=== PATIENT | female | born 1975 | race Caucasian/White ===

== ENCOUNTER 2016-09-04 13:32 | Inpatient (IN) | payer MEDICAID ==
[~2016-09-04] VITALS: Ht 160 cm; Wt 70.0 kg
[~2016-09-04 13:32] MED LIST: PRENAT PO
[2016-09-04 13:41] VITALS: Ht 160 cm; Wt 70.0 kg
[2016-09-04 13:42] VITALS: BP 124/77; PULSE 75; RESP 20
[2016-09-04] MEDS ORDERED: LACTATED RINGER'S 1,000 ML IV ONE (14:30)
--- NOTE | 2016-09-04 14:55 | RADRPT ---
PROCEDURE: OB ultrasound for biophysical profile CLINICAL INDICATION: Poor tone. Biophysical profile. . Low ANY level. TECHNIQUE: Multiple sonographic images of the pelvis were obtained. Transabdominal view of the gr avid uterus are available for review. The images were reviewed on a PACS workstation. COMPARISON: Previous OB ultrasound performed at an outside institution dated 09/02/2016 FINDINGS: breathing movement = 2/2 tone = 2/2 motion = 2/2 ANY = 2/2 ANY = 6.0 cm, previously 7.0 cm Single live intrauterine with cardiac activity. Cephalic presentation, anterior placenta. IMPRESSION: 1. Single viable intrauterine gestation. 2. Biophysical profile = 8/8. 3. ANY = 6.0 cm. RPTAT: HMJB .Phillip Allen MD, MD Date Time Electronically viewed and signed by .Phillip Allen MD, MD on 09/04/2016 14:55 .B/
[2016-09-04] MEDS ORDERED: CARBOPROST 250 MCG INJ IM PRN (16:00)
[2016-09-04] MEDS ORDERED: BUTORPHANOL 2 MG INJ IV PRN (16:00)
[2016-09-04] MEDS ORDERED: MISOPROSTOL 200 MCG TAB PR PRN (16:00)
[2016-09-04] MEDS ORDERED: AMPICILLIN 2 GM/NS (PMX) 100 ML IVPB ONE (16:00)
[2016-09-04] MEDS ORDERED: IBUPROFEN 600 MG TAB PO PRN (16:00)
[2016-09-04] MEDS ORDERED: METHYLERGONOVINE 0.2 MG INJ IM PRN (16:00)
[2016-09-04] MEDS ORDERED: OXYTOCIN 30 UNITS/LR 500 ML IV PRN (16:00)
[2016-09-04] MEDS ORDERED: OXYTOCIN 30 UNITS/LR 500 ML IV SCH (16:00)
[2016-09-04] MEDS ORDERED: LIDOCAINE 1% (MPF) 30 ML INJ INJ PRN (16:00)
[2016-09-04] MEDS ORDERED: LACTATED RINGER'S 1,000 ML IV PRN (16:00)
[2016-09-04 16:13] LABS: BASOPHILS % 0.5 % (0.0-2.0); EOSINOPHILS % 0.4 % (0.0-7.0); HEMATOCRIT 35.6 % (37.0-47.0); LYMPHOCYTES # 1.7 10^3/ul (0.8-2.9); LYMPHOCYTES % 17.7 % (15.0-51.0); MEAN CORPUSCULAR HEMOGLOBIN 31.4 pg (29.0-33.0); MEAN CORPUSCULAR HGB CONC 33.8 g/dl (32.0-37.0); MEAN CORPUSCULAR VOLUME 92.9 fl (82.0-101.0); MEAN PLATELET VOLUME 9.7 fl (7.4-10.4); MONOCYTE # 0.4 10^3/ul (0.3-0.9); NEUTROPHIL # 7.3 10^3/ul (1.6-7.5); NEUTROPHILS % 77.4 % (39.0-77.0); PLATELET COUNT 223 10^3/UL (140-440); RED BLOOD COUNT 3.83 10^6/ul (4.20-5.40); RED CELL DISTRIBUTION WIDTH 13.1 % (11.5-14.5); UNCORRECTED WBC 9.4 10^3/ul (4.8-10.8); WHITE BLOOD COUNT 9.4 10^3/ul (4.8-10.8)
[2016-09-04 16:22] LABS: INR 0.93; PROTIME 12.5 Sec (12.2-14.2)
[2016-09-04 16:23] LABS: CONDITION 1
[2016-09-04] MEDS: LACTATED RINGER'S 1,000 ML IV SCH (18:19)
[2016-09-04] MEDS: AMPICILLIN 1 GM/NS (PMX) 50 ML IVPB SCH ×2 (19:59→23:55)
[2016-09-05] MEDS: LACTATED RINGER'S 1,000 ML IV SCH ×3 (03:56→13:22)
[2016-09-05] MEDS: AMPICILLIN 1 GM/NS (PMX) 50 ML IVPB SCH ×5 (03:56→17:08)
--- NOTE | 2016-09-05 19:18 | RADRPT ---
PROCEDURE: OB ultrasound for biophysical profile CLINICAL INDICATION: Low ANY. Biophysical profile. . TECHNIQUE: Multiple sonographic images of the pelvis were obtained. Transabdominal view of the gr avid uterus are available for review. The images were reviewed on a PACS workstation. COMPARISON: None FINDINGS: breathing movement = 2/2 tone = 2/2 motion = 2/2 ANY = 2/2 ANY = 6.4 cm. Maximum vertical pocket of fluid measures 3.1 cm. Single intrauterine gestation is identified in cephalic position. Placenta is anterior without evide nce for abruption or previa. heart rate is 124 bpm. IMPRESSION: 1. Single live intrauterine gestation. 2. Biophysical profile = 8/8. 3. ANY = 6.4 cm, at the lower limit of normal. RPTAT: QQ .Talat San MD, Date Time Electronically viewed and signed by .Talat San MD, on 09/05/2016 13:45 .R/
[2016-09-06] MEDS: LACTATED RINGER'S 1,000 ML IV SCH ×4 (02:04→23:00)
--- NOTE | 2016-09-06 10:56 | RADRPT ---
PROCEDURE: US biophysical profile. CLINICAL INDICATION: Decreased motion. TECHNIQUE: Multiple sonographic images of the uterus were obtained. The images were revi ewed on a PACS workstation. COMPARISON: No prior studies are available for comparison. FINDINGS: There is a single live intrauterine gestation. The position is cephalic. The placenta is anterior grade II with no abruption or previa. The ANY is 7.1 cm. (Normal = 5-20 cm.) Breathing Movement: 2 Gross Body Movement: 2 Tone: 0 Qualitative Amniotic Fluid Volume: 2 TOTAL: 6 IMPRESSION: 1. The biophysical score is 6/8. RPTAT: QQ .Nabil Rivera MD, Date Time Electronically viewed and signed by .Nabil Rivera MD, on 09/06/2016 10:56 .R/
[2016-09-07] MEDS: LACTATED RINGER'S 1,000 ML IV SCH ×2 (07:19→16:51)
--- NOTE | 2016-09-07 08:50 | RADRPT ---
PROCEDURE: US OB biophysical profile. CLINICAL INDICATION: decreased movements, oligohydramnios TECHNIQUE: Multiple sonographic images of the pelvis were obtained. The images were reviewed on a PACS workstation. COMPARISON: Yesterday FINDINGS: There is a single viable intrauterine gestation. Cardiac activity is present with 121 beats per min [place]. There is a vertex presentation. The placenta is anterior. There is no evidence of placental abruption. There is a slightly decreased amount of amniotic fluid with an ANY = 7.5 cm. Biophysical profile: movement 2/2 tone 2/2. breathing 2/2 ANY 2/2 Total 04/12 RPTAT: AA . IMPRESSION: Normal biophysical profile. Borderline oligohydramnios. . .Antony Garvin MD, Date Time Electronically viewed and signed by .Antony Garvin MD, on 09/07/2016 08:49 .S/
[2016-09-07] MEDS ORDERED: SENNA/DOCUSATE NA (8.6MG/50MG) TAB PO ONE (17:30)
[2016-09-08] MEDS: LACTATED RINGER'S 1,000 ML IV SCH ×3 (01:56→16:28)
[2016-09-08 05:41] LABS: BARBITURATES NEGATIVE (NEGATIVE); BENZODIAZEPINES NEGATIVE (NEGATIVE); CANNABINOIDS NEGATIVE (NEGATIVE); COCAINE NEGATIVE (NEGATIVE); OPIATES NEGATIVE (NEGATIVE)
[2016-09-08] MEDS ORDERED: MISOPROSTOL 100 MCG TAB PO PRN (06:00)
[2016-09-08] MEDS ORDERED: AMPICILLIN 2 GM/NS (PMX) 100 ML IVPB ONE (06:00)
[2016-09-08] MEDS: MISOPROSTOL 25 MCG CAPSULE PO PRN ×3 (06:05→20:17)
[2016-09-08] MEDS: AMPICILLIN 1 GM/NS (PMX) 50 ML IVPB SCH ×4 (10:02→21:32)
[2016-09-09] MEDS: AMPICILLIN 1 GM/NS (PMX) 50 ML IVPB SCH ×4 (01:10→14:07)
[2016-09-09] MEDS: LACTATED RINGER'S 1,000 ML IV SCH ×4 (01:11→14:06)
[2016-09-09] MEDS ORDERED: DINOPROSTONE 10 MG VAG SUPP VAG ONE (06:30)
[2016-09-09] MEDS ORDERED: FENTAnyl 2MCG/ML-ROPIV 0.2% 100 ML ONE (12:15)
[2016-09-09] MEDS ORDERED: EPHEDrine SULFATE 50 MG/5 ML SYG IV PRN (12:30)
[2016-09-09] MEDS ORDERED: FENTAnyl 2MCG/ML-ROPIV 0.2% 100 ML BAG EPI SCH (12:30)
[2016-09-09] MEDS ORDERED: ONDANSETRON 4 MG INJ IV PRN (12:30)
[2016-09-09] MEDS ORDERED: NALOXONE (0.4 MG/ML) INJ IV PRN (12:30)
[2016-09-09] MEDS: OXYTOCIN 30 UNITS/LR 500 ML IV SCH ×2 (16:11→16:54)
[2016-09-09] MEDS: LACTATED RINGER'S 1,000 ML IV* SCH ×2 (17:27→18:56)
[2016-09-09] MEDS ORDERED: ACETAMINOPHEN/CODEINE #3 TAB PO PRN (17:30)
[2016-09-09] MEDS ORDERED: OXYTOCIN 30 UNITS/LR 500 ML IV PRN (17:30)
[2016-09-09] MEDS ORDERED: CARBOPROST 250 MCG INJ IM PRN (17:30)
[2016-09-09] MEDS ORDERED: MISOPROSTOL 200 MCG TAB PR PRN (17:30)
[2016-09-09] MEDS ORDERED: WITCH HAZEL/GLYCERIN PAD PR PRN (17:30)
[2016-09-09] MEDS ORDERED: METHYLERGONOVINE 0.2 MG INJ IM PRN (17:30)
[2016-09-09] MEDS ORDERED: DIBUCAINE 1% 30 GM OINT PR PRN (17:30)
[2016-09-09] MEDS ORDERED: BENZOCAINE 20% 56 ML SPRAY TOP PRN (17:30)
[2016-09-09] MEDS ORDERED: ACETAMINOPHEN 325 MG TAB PO PRN (17:30)
--- NOTE | 2016-09-09 17:47 | DELSUM ---
Delivery Summary A-C Datetime Report Generated by CPN: 09/09/2016 17:46 DELIVERY PERSONNEL Senior Quality Assurance Engineer: Watson, [place] MATERNAL INFORMATION Delivery Anesthesia: Local; Epidural Medications in Delivery: pitocin Estimated Blood Loss (ml): 200 Placenta Cultured: Yes Maternal Complications: None LABOR SUMMARY EDC: 09/18/2016 00:00 No. Babies in Womb: 1 Attempted: No Labor Anesthesia: Epidural LABOR INFORMATION Reason for Induction: Other Complete Dilatation: 09/09/2016 15:59 Cervical Ripening Agents: Cervidil Cervical Ripening Agents: Cervidil Cervical Ripening Agents: Cervidil Cervical Ripening Agents: Cytotec @ (Annotations: 50MCG PO (DOSE #3)) Cervical Ripening Agents: Cytotec @ 50 Oxytocin: N/A Group B Beta Strep: Positive Antibiotics # of Doses: 3 Antibiotics Time of Last Dose: 1407 Steroids Given: None Reason Steroids Not Administered: Not Applicable MEMBRANES Membranes Rupture Method: Spontaneous Rupture of Membranes: 09/09/2016 11:17 Length of Rupture (hr): 4.80 Amniotic Fluid Color: Clear Amniotic Fluid Amount: Small Amniotic Fluid Odor: Normal STAGES OF LABOR Stage 2 hr: 0 Stage 2 min: 6 Stage 3 hr: 0 Stage 3 min: 3 VAGINAL DELIVERY Episiotomy: Median Laceration Extension: N/A Laceration Type: None Initial Vag Sponge Count: 10 Final Vag Sponge Count: 10 Initial Vag Sharps Count: 1 Final Vag Sharps Count: 2 Sponge Count Correct: Yes Count Comment: 10 raytex add 1 sharp BABY A INFORMATION Delivery Date/Time: 09/09/2016 16:05 Method of Delivery: Vaginal Method of Delivery: Vaginal Born in Route : No : N/A Forceps: N/A Vacuum Extraction: N/A Shoulder Dystocia : No SHOULDER DYSTOCIA BABY A Infant Delivery Date/Time: 09/09/2016 16:05 PRESENTATION/POSITION BABY A Presentation: Cephalic Cephalic Presentation: Vertex Vertex Position: Left Occipital Anterior Breech Presentation: N/A PLACENTA INFORMATION BABY A Placenta Delivery Time : 09/09/2016 16:08 Placenta Method of Delivery: Spontaneous Placenta Method of Delivery: Spontaneous Placenta Status: Delivered SCORES BABY A Heart Rate 1 min: >100 bpm Resp Effort 1 min: Good Cry Reflex Irritability 1 min: Cough/Sneeze/Pulls Away Muscle Tone 1 min: Flaccid Color 1 min: Body [place], Extremit Blue Resuscitation Effort 1 min: Tactile Stimulation; Oxygen SCORE 1 MIN: 7 Heart Rate 5 min: >100 bpm Resp Effort 5 min: Good Cry Reflex Irritability 5 min: Cough/Sneeze/Pulls Away Muscle Tone 5 min: Some Flexion of Extrem Color 5 min: Body [place], Extremit Blue SCORE 5 MIN: 8 INFORMATION BABY A Gestational Age at Delivery: 38.5 Gestational Status: Early Term- 37- 38.6 Weeks Outcome : Liveborn Condition : Stable Infant Sex: Male Infant Sex: Male IDENTIFICATION/MEDS BABY A ID Band Number: [id number] ID Band Location: Right Leg; Left Arm Sensor Number: [id number] Sensor Location : Cord Clamp Vitamin K Given : Aquamephyton 1 mg IM; Left Thigh Erythromycin Given: Given Both Eyes WEIGHT/LENGTH BABY A Infant Birthweight (gm): 2845 Infant Weight (lb): 6 Weight (oz): 4 Length (in): 20.00 Length (cm): 50.80 CORD INFORMATION BABY A No. Cord Vessels: 3 Nuchal Cord : Around Neck x1, Tight Cord Blood Taken: Yes Infant Suction: Mouth; Nose ASSESSMENT BABY A Infant Complications: Multiple Late Decels; Multiple Variable Decels Physical Findings at Delivery: Within Normal Limits Physical Findings- Other: void x1 Respirations: Appears Normal Svp Of Digital/ALS Called : No Care By: rt/dione rnc Transferred To: Remains with Mother
--- NOTE | 2016-09-09 17:49 | OPRPT ---
Intraop Record Datetime Report Generated by CPN: 09/09/2016 17:49 Datetime: 08/30/2016 16:22 Drug Allergies/Reactions: Sulfa (Sulfonamide Antibiotics)/SV (08/30/2016) Datetime: 08/28/2016 11:41 Drug Allergies/Reactions: Sulfa (Sulfonamide Antibiotics)/SV (08/28/2016) Datetime: 08/28/2016 11:34 Drug Allergies/Reactions: No Known Allergy (08/26/2016) Datetime: 08/26/2016 11:45 Drug Allergies/Reactions: sulfa) Datetime: 08/26/2016 11:37 Food Allergies/Reactions: none Latex Allergies/Reactions: No Latex Allergies
--- NOTE | 2016-09-09 17:49 | DELSUM ---
Delivery Summary A-C Datetime Report Generated by CPN: 09/09/2016 17:49 DELIVERY PERSONNEL Mental Health Practitioner: Watson, [place] MATERNAL INFORMATION Delivery Anesthesia: Local; Epidural Medications in Delivery: pitocin Estimated Blood Loss (ml): 200 Placenta Cultured: Yes Maternal Complications: None LABOR SUMMARY EDC: 09/18/2016 00:00 No. Babies in Womb: 1 Attempted: No Labor Anesthesia: Epidural LABOR INFORMATION Reason for Induction: Other Complete Dilatation: 09/09/2016 15:59 Cervical Ripening Agents: Cervidil Cervical Ripening Agents: Cervidil Cervical Ripening Agents: Cervidil Cervical Ripening Agents: Cytotec @ (Annotations: 50MCG PO (DOSE #3)) Cervical Ripening Agents: Cytotec @ 50 Oxytocin: N/A Group B Beta Strep: Positive Antibiotics # of Doses: 3 Antibiotics Time of Last Dose: 1407 Steroids Given: None Reason Steroids Not Administered: Not Applicable MEMBRANES Membranes Rupture Method: Spontaneous Rupture of Membranes: 09/09/2016 11:17 Length of Rupture (hr): 4.80 Amniotic Fluid Color: Clear Amniotic Fluid Amount: Small Amniotic Fluid Odor: Normal STAGES OF LABOR Stage 2 hr: 0 Stage 2 min: 6 Stage 3 hr: 0 Stage 3 min: 3 VAGINAL DELIVERY Episiotomy: Median Laceration Extension: N/A Laceration Type: None Initial Vag Sponge Count: 10 Final Vag Sponge Count: 10 Initial Vag Sharps Count: 1 Final Vag Sharps Count: 2 Sponge Count Correct: Yes Count Comment: 10 raytex add 1 sharp BABY A INFORMATION Delivery Date/Time: 09/09/2016 16:05 Method of Delivery: Vaginal Method of Delivery: Vaginal Born in Route : No : N/A Forceps: N/A Vacuum Extraction: N/A Shoulder Dystocia : No SHOULDER DYSTOCIA BABY A Infant Delivery Date/Time: 09/09/2016 16:05 PRESENTATION/POSITION BABY A Presentation: Cephalic Cephalic Presentation: Vertex Vertex Position: Left Occipital Anterior Breech Presentation: N/A PLACENTA INFORMATION BABY A Placenta Delivery Time : 09/09/2016 16:08 Placenta Method of Delivery: Spontaneous Placenta Method of Delivery: Spontaneous Placenta Status: Delivered SCORES BABY A Heart Rate 1 min: >100 bpm Resp Effort 1 min: Good Cry Reflex Irritability 1 min: Cough/Sneeze/Pulls Away Muscle Tone 1 min: Flaccid Color 1 min: Body [place], Extremit Blue Resuscitation Effort 1 min: Tactile Stimulation; Oxygen SCORE 1 MIN: 7 Heart Rate 5 min: >100 bpm Resp Effort 5 min: Good Cry Reflex Irritability 5 min: Cough/Sneeze/Pulls Away Muscle Tone 5 min: Some Flexion of Extrem Color 5 min: Body [place], Extremit Blue SCORE 5 MIN: 8 INFORMATION BABY A Gestational Age at Delivery: 38.5 Gestational Status: Early Term- 37- 38.6 Weeks Outcome : Liveborn Condition : Stable Infant Sex: Male Infant Sex: Male IDENTIFICATION/MEDS BABY A ID Band Number: [id number] ID Band Location: Right Leg; Left Arm Sensor Number: [id number] Sensor Location : Cord Clamp Vitamin K Given : Aquamephyton 1 mg IM; Left Thigh Erythromycin Given: Given Both Eyes WEIGHT/LENGTH BABY A Infant Birthweight (gm): 2845 Infant Weight (lb): 6 Weight (oz): 4 Length (in): 20.00 Length (cm): 50.80 CORD INFORMATION BABY A No. Cord Vessels: 3 Nuchal Cord : Around Neck x1, Tight Cord Blood Taken: Yes Infant Suction: Mouth; Nose ASSESSMENT BABY A Infant Complications: Multiple Late Decels; Multiple Variable Decels Physical Findings at Delivery: Within Normal Limits Physical Findings- Other: void x1 Respirations: Appears Normal [employer] Supervisor/ALS Called : No Care By: rt/dione rnc Transferred To: Remains with Mother
[2016-09-09 17:55] VITALS: BP 113/67; PULSE 68; RESP 16
[2016-09-09] MEDS: IBUPROFEN 600 MG TAB PO SCH ×2 (18:54→23:38)
[2016-09-09 20:00] VITALS: BP 108/66; PULSE 55; RESP 18
--- NOTE | 2016-09-09 20:24 | LDN ---
Date/Time of Note Date/Time of Note DATE: 09/09/16 TIME: 20:15 Delivery Summary over median episiotomy. Placenta Delivered: Spontaneously Meconium: none Perineum intact?: No Perineal laceration repair: Median episiotomy repaired with 3-0 Vicryl. Anesthesia type: Epidural Estimated blood loss: 200 Sponge & Needle done & correct: Yes All needle counts correct: Yes Any foreign bodies felt in the: No Problems: Delivery Information Sex Infant Sex: male Apgars 1 Minute: 7 5 Minute: 8 Suctioning Nose & mouth suctioned at rosario: Yes Delee suction performed: No Umbilical Cord Umbilical cord with: 3 Vessels Cord presentations: nuchal cord Nuchal cord present X: 1 Cord Blood was obtained: Yes Mother & Baby Disposition Disposition Mom & Baby to Maternity; Good: Yes ZAHRAA HAMILTON MD Sep 09, 2016 20:24
[2016-09-09] MEDS: SENNA/DOCUSATE NA (8.6MG/50MG) TAB PO SCH (21:08)
[2016-09-09 23:40] VITALS: BP 123/70; PULSE 68; RESP 18
[2016-09-10 04:00] VITALS: BP 103/60; PULSE 63; RESP 18
[2016-09-10] MEDS: IBUPROFEN 600 MG TAB PO SCH ×4 (05:29→23:29)
[2016-09-10 06:34] LABS: BASOPHILS % 0.1 % (0.0-2.0); EOSINOPHILS # 0.1 10^3/ul (0.0-0.5); EOSINOPHILS % 0.6 % (0.0-7.0); HEMATOCRIT 33.2 % (37.0-47.0); HEMOGLOBIN 11.3 g/dl (12.0-16.0); LYMPHOCYTES # 1.7 10^3/ul (0.8-2.9); LYMPHOCYTES % 18.4 % (15.0-51.0); MEAN CORPUSCULAR HEMOGLOBIN 31.5 pg (29.0-33.0); MEAN CORPUSCULAR HGB CONC 33.9 g/dl (32.0-37.0); MEAN CORPUSCULAR VOLUME 93.1 fl (82.0-101.0); MEAN PLATELET VOLUME 9.5 fl (7.4-10.4); MONOCYTE # 0.4 10^3/ul (0.3-0.9); NEUTROPHIL # 7.1 10^3/ul (1.6-7.5); NEUTROPHILS % 76.9 % (39.0-77.0); PLATELET COUNT 196 10^3/UL (140-440); RED BLOOD COUNT 3.57 10^6/ul (4.20-5.40); RED CELL DISTRIBUTION WIDTH 12.8 % (11.5-14.5); UNCORRECTED WBC 9.2 10^3/ul (4.8-10.8); WHITE BLOOD COUNT 9.2 10^3/ul (4.8-10.8)
[2016-09-10 06:45] LABS: CONDITION 1
[2016-09-10 08:00] VITALS: BP 102/62; PULSE 59; RESP 18
[2016-09-10] MEDS: SENNA/DOCUSATE NA (8.6MG/50MG) TAB PO SCH ×2 (08:50→20:59)
[2016-09-10] MEDS: LACTATED RINGER'S 1,000 ML IV* SCH (09:27)
[2016-09-10 16:00] VITALS: BP 105/67; PULSE 59; RESP 19
[2016-09-10 20:00] VITALS: BP 111/73; PULSE 58; RESP 18
[2016-09-11 04:00] VITALS: BP 112/77; PULSE 56; RESP 20
[2016-09-11] MEDS: IBUPROFEN 600 MG TAB PO SCH ×3 (05:32→17:33)
[2016-09-11] MEDS ORDERED: LEVOTHYROXINE 25 MCG TAB PO SCH (06:00)
[2016-09-11 08:42] VITALS: BP 112/57; PULSE 58; RESP 18
[2016-09-11] MEDS: SENNA/DOCUSATE NA (8.6MG/50MG) TAB PO SCH (09:00)
[2016-09-11] MEDS ORDERED: DIPHTH/TET/ACEL PERTUSS (ADULT) 0.5 ML VIAL IM* ONE (09:00)
[2016-09-11 16:37] VITALS: BP 118/58; PULSE 69; RESP 18
--- NOTE | 2016-09-11 17:47 | DS ---
Date/Time of Note Date/Time of Note DATE: 09/11/16 TIME: 17:45 Obstetrical Discharge Record Final Diagnosis Final Diagnosis: Term delivered Vaginal Delivery Obstetrical Delivery: Spontaneous, Episiotomy, Repaired Complications Complications: Low weight 1500-2500gms Complications Induction: Yes Rupture of Membranes: No Condition on Discharge Physical Assessment Voiding: Yes Bowel Movement: Yes Breast: Soft, non-tender Fundus: Firm Calf Tenderness: No Patient Condition: Stable ZAHRAA HAMILTON MD Sep 11, 2016 17:47
== END 2016-09-11 18:39 | disposition home or self-care (01) | DRG 775 ==
LOC: OBT 13:32 → L-D 13:33 → OBT 15:30 → L-D 18:15 → PP1 09-09 17:54
PROVIDERS: ADMIT Obstetrics & Gynecology; ATTEND Obstetrics & Gynecology
PROC: 10E0XZZ Delivery of Products of Conception, External Approach (ICD-10-PCS; principal; 2016-09-09)
PROC: 3E0P7GC Introduction of Other Therapeutic Substance into Female Reproductive, Via Natural or Artificial Opening (ICD-10-PCS; 2016-09-09)
PROC: 0W8NXZZ Division of Female Perineum, External Approach (ICD-10-PCS; 2016-09-09)
DX: O69.1XX0 Labor and delivery complicated by cord around neck, with compression, not applicable or unspecified (principal); O36.5930 Maternal care for other known or suspected poor fetal growth, third trimester, not applicable or unspecified; O09.523 Supervision of elderly multigravida, third trimester; Z3A.38 38 weeks gestation of pregnancy; Z37.0 Single live birth
CPT/HCPCS: 36415; 62319; 76818; 80307; 85025; 85610; 85730; 86592; 86900; 86901; 88307; 90715; 96360; G0463; J0290; J2590; J3010; J7120